=== PATIENT | female | born 1950 | race Caucasian/White ===

== ENCOUNTER 2022-09-29 10:43 | Day surgery (SDC) | payer OTHER ==
[~2022-09-29] VITALS: Ht 167.6 cm; Wt 75.7 kg
[2022-09-29] MEDS ORDERED: Premarin 225 MG/5 ML IM (11:27)
--- NOTE | 2022-09-29 12:11 | NUR ---
Patient up to Ambulate independently. Gait steady. History, Chart, Medications and Allergies reviewed before start of procedure.Pre-Op teaching done. Pt verbalizes understanding.
--- NOTE | 2022-09-29 16:31 | NUR ---
SHIFT SUMMARY: POD 0 A&P NO SIGNIFICANT CHANGES SINCE BEING BACK FROM PACU. PATIENT IS A&OX4. VS ARE WNL AND IS ON RA. PATIENT DENIES PAIN AT THIS TIME. HER FARZAD PAD HAS NO BLOOD ON IT AT THIS TIME. SHE IS TOLERATING PO INTAKE. TALBOT IS DRAINING PER GRAVITY WITH LIGHT YELLOW URINE IN IT THAT WILL BE D/C'D TOMORROW. PATIENT IS RESTING COMFORTABLY IN BED WITH CALL LIGHT IN REACH.
--- NOTE | 2022-09-30 04:48 | NUR ---
POD1 ANTERIOR/POSTERIOR ENTEROCELE REPAIR. MINIMAL BLEEDING NOTED T/O THE SHIFT. VSS. PT C/O DISCOMFORT IN PERINEAL AREA, MEDICATED ONCE FOR THIS. PT DID NOT SLEEP MUCH T/O THE NIGHT. TALBOT REMOVED 0430. GOOD URINE OUTPUT NOTED, CLEAR LIGHT YELLOW. AWAITING FIRST VOID. NO BM'S NOTED. PT REPORTS NO FLATTUS. TOLLERATING PO INTAKE W/O N/V. NO ACUTE EVENTS T/O THE NIGHT. PLAN FOR PT TO D/C HOME TODAY. THE PATIENT IS CURRENTLY RESTING IN BED, IN NO DISTRESS, CALL LIGHT IN REACH
[2022-09-30] MEDS ORDERED: DOCU100 PO (07:23)
[2022-09-30] MEDS ORDERED: ACET325 PO (07:23)
[2022-09-30] MEDS ORDERED: Norco 5-325 Ta1 EACH PO (07:24)
[2022-09-30] MEDS ORDERED: IBUP800 PO (07:25)
[2022-09-30] MEDS ORDERED: MIRALAX17 GM PO (07:25)
--- NOTE | 2022-09-30 10:15 | NUR ---
DISCHARGE SUMMARY POD1 A&P REPAIR, A/OX4, VSS, TOLERATING PO, INDEPENDENT IN THE ROOM, PAIN WELL MANAGED. DISCUSSED DISCHARGE INSTRUCTIONS WITH THE PATIENT INCLUDING HOME MEDICATIONS, HOME CARE, FOLLOW UP APPOINTMENTS, AND CONTACT INFORMATION SHOULD SHE NEED TO ASK QUESTIONS OR ADDRESS ANY CONCERNS THAT MAY COME UP AFTER DISCHARGE. IV ACCESS REMOVED PRIOR TO DISCHARGE. PT ESCORTED OUT VIA WC TO PRIVATE AUTO TO GO HOME.
== END 2022-09-30 09:44 | disposition home or self-care (01) ==
LOC: ORSCMMR 10:43 → ORD 12:00 → ORSCMMR 12:00 → SURS 15:00 → ORSCMMR 09-30 09:44
PROVIDERS: Obstetrics & Gynecology
PROC: 0JQC0ZZ Repair Pelvic Region Subcutaneous Tissue and Fascia, Open Approach (ICD-10-PCS; principal; 2022-09-29 12:00)
PROC: 0UQF0ZZ Repair Cul-de-sac, Open Approach (ICD-10-PCS; principal; 2022-09-29 12:00)
DX: N81.11 Cystocele, midline (principal); N81.5 Vaginal enterocele; N81.6 Rectocele; F41.8 Other specified anxiety disorders; Z87.891 Personal history of nicotine dependence
CPT/HCPCS: A9270; J0690; J1100; J1170; J1885; J2370; J2405; J2704; J3010; J7120

== ENCOUNTER → 2023-04-30 | Outpatient (CLI) | payer OTHER ==
[~2023-04-30] MED LIST: ACET325 PO; DOCU100 PO; IBUP800 PO; MIRALAX17 GM PO; Norco 5-325 Ta1 EACH PO; Premarin 225 MG/5 ML IM
== END ==
LOC: LAB 13:09 → LAB SHORT 13:09
DX: L57.0 Actinic keratosis (principal)
CPT/HCPCS: 88305